=== PATIENT | male | born 1980 | race Caucasian/White ===

== ENCOUNTER 2019-02-07 23:31 | Inpatient (IN) | payer SELFPAY ==
[~2019-02-07] VITALS: Ht 188 cm; Wt 134.3 kg
--- NOTE | ~2019-02-07 | HEMODYNAMI ---
PATIENT:FRANKY HERNANDEZ MEDICAL RECORD: [id number] : 76 LOCATION:[facility] D.1212 ADMISSION DATE: 02/08/19 Generatedon:02/08/201918:17 Patient name: FRANKY HERNANDEZ Patient #: [id number] SSN: : 1980 Date of study: 02/08/2019 Page: Of Hemodynamic Procedure Report Patient Data Patient Demographics Procedure consent was obtained First Name: FRANKY Gender: Male Last Name: DAVID : 1980 Patient #: [id number] Age: 38 year(s) Race: Unknown Additional ID: [id number] Contact details Address: [address] [place] [address] State: [place] City: [facility] Zip code: [address] Admission Admission Data Admission Date: 02/08/2019 Admission Time: 3:17 Room #: D.1212 Procedure Procedure Types Cath Procedure Diagnostic Procedure LHC LHC w/Coronaries Procedure Description Procedure Date Procedure Date: 02/08/2019 Procedure Start Time: 18:07 Procedure End Time: 18:13 Procedure Staff Name Function Michael Lyon RT Scrub Mimi Blum RT Monitor Chemo Weston RN Nurse Hussain Shaw MD Performing Physician Procedure Data Cath Procedure Fluoroscopy Diagnostic fluoroscopy Total fluoroscopy Time: 1.5 time: 1.5 min min Diagnostic fluoroscopy Total fluoroscopy dose: 713 dose: 713 mGy mGy Contrast Material Contrast Material Type Amount (ml) Isovue 300 71 Entry Location Entry Primary Successful Side Size Upsize Upsize Entry Closure Briceño ccessful Closure Location (Fr) 1 (Fr) 2 (Fr) Remarks Device Remarks Radial Right 6 Fr Mechanical artery Short Compression Estimated blood loss: 5 ml Diagnostic catheters Device Type Used For End Catheter Placement DIAGNOSTIC [place] 110cm 5 Multi-vessel Fr catheter ([id number]) Angiography Procedure Complications No complications Procedure Medications Medication Administration Route Dosage Oxygen etCO2 Nasal cannula 2 l/min Heparin Flush Bag added to field 2 bags (1000units/500ml NS) 0.9% NaCl I.V. 100 ml/hr Lidocaine 2% added to field 20 Radial Cocktail added to field 1 syringe (Verapomil 2mg/Nitro 400mcg/Heparin 1500units) Fentanyl I.V. 50 mcg Versed I.V. 1 mg Fentanyl I.V. 50 mcg Versed I.V. 1 mg Radial Cocktail I.A. 1 syringe (Verapomil 2mg/Nitro 400mcg/Heparin 1500units) Hemodynamics Rest Heart Rate: 101 (bpm) Pressure Samples Time Site Value (mmHg) Purpose Heart Use Rate(bpm) 18:09 LV 138/18,33 Snapshot 100 Snapshots Pre Cath Intra NCS Post Cath Vital Signs Time Heart Resp SPO2 etCO2 NIBP (mmHg) Rhythm Pain Sedation Rate (ipm) (%) (mmHg) Status Level (bpm) 18:04:27 99 20 95 0 168/113(141) NSR 0 (11) 10(A) , No pain 18:08:53 113 24 94 30.9 159/105(126) NSR 0 (11) 10(A) , No pain 18:13:23 98 30 95 33.2 155/112(137) NSR 0 (11) 9(A) , No pain 18:15:02 97 15 34.7 160/102(131) NSR 0 (11) 9(A) , No pain Medications Time Medication Route Dose Verified Delivered Reason Notes Effectiveness by by 18:05:58 Oxygen etCO2 2 l/min Hussain Mclain Per Nasal Colin Wetson RN physician cannula 18:06:06 Heparin Flush added 2 bags Hussain Mclain used for Bag to Colin Weston RN procedure (1000units/500ml field NS) 18:06:14 0.9% NaCl I.V. 100 Hussain Mclain Per ml/hr Colin Weston RN physician 18:06:37 Lidocaine 2% added 20ml Hussain Mclain for local to vial Colin Weston RN anesthetic field 18:06:44 Radial Cocktail added 1 Hussain Mclain used for (Verapomil to syringe Colin Weston RN procedure 2mg/Nitro field 400mcg/Hepari 18:06:50 Fentanyl I.V. 50 mcg Hussain Mclain for sedation Colin Weston RN 18:06:57 Versed I.V. 1 mg Hussain Mclain for sedation Tauth MD Weston RN 18:09:48 Fentanyl I.V. 50 mcg Hussain Mclain for sedation Colin Weston RN 18:09:52 Versed I.V. 1 mg Hussain Mclain for sedation Colin Weston RN 18:10:02 Radial Cocktail I.A. 1 Hussain Nixon for (Verapomil syringe Colin Shaw MD vasodilation 2mg/Nitro 400mcg/Hepari Procedure Log Time Note 17:41:41 Diagnostic Cath Status : Elective 17:41:57 Chemo Weston RN sent for patient. Start room use. 17:41:58 Time tracking: Regular hours (M-F 7:00 - 5:00) 17:42:04 Plan of Care:Hemodynamics will remain stable., Cardiac rhythm will remain stable., Comfort level will be maintained., Respiratory function will remain adequate., Patient/ family verbilizes understanding of procedure., Procedure tolerated without complication., Recovers from procedure without complications.. 17:54:02 Patient received from Med II to CCL 1 Alert and oriented. Tansferred to table in Supine position. 17:54:03 Warm blankets applied, and prabha hugger turned on for patient comfort. 17:54:04 Correct patient and procedure confirmed by team. 17:54:05 Signed procedure consent form obtained from patient. 17:54:06 ECG and BP/O2 sat monitors applied to patient. 18:03:04 Vital chart was started 18:03:04 Baseline sample Acquired. 18:03:11 Rhythm: sinus rhythm 18:03:12 Full Disclosure recording started 18:03:16 H&P Date Dictated: 02/08/2019 New H&P dictated by physician.. 18:03:17 Pre-procedure instructions explained to patient. 18:03:18 Pre-op teaching completed and patient verbalized understanding. 18:03:19 Family in waiting room. 18:03:20 Patient NPO since Midnight. 18:03:21 Is the patient allergic to Iodine/contrast media? No. 18:03:22 Was the patient premedicated? No 18:03:24 Is patient on blood thinner?No 18:03:26 Patient diabetic? No. 18:03:29 Previous problem with sedation/anesthesia? No ? 18:03:31 Snore? Yes 18:03:32 Sleep apnea? No 18:03:33 Opens mouth fully? Yes 18:03:33 Deviated septum? No 18:03:34 Sticks out tongue? Yes 18:03:35 Airway obstruction? No ? 18:03:39 Dentures? No ? 18:03:42 Pre procedure: right dorsailis pedis pulse 2+ Normal; easily identifiable; not easily obliterated 18:03:47 Pre procedure: left dorsailis pedis pulse 2+ Normal; easily identifiable; not easily obliterated 18:03:50 Patient pain scale 0/10 ?. 18:03:58 IV patent on arrival in right forearm with 0.9% NaCl at [facility]. 18:04:00 Lab results completed and on chart. 18:04:03 Right Radial & Right Groin area was prepped with chlora-prep and draped in sterile fashion 18:04:05 Alarms reviewed by R. N. 18:04:06 Sharps counted by scrub and verified by R.N. 18:04:07 --------ALL STOP TIME OUT------ 18:04:07 Physician arrived 18:04:08 Final Timeout: patient, procedure, and site verified with staff and physician. All members of the team are in agreement. 18:04:09 Right Radial & Right Groin site verified by team. 18:04:45 Maximum allowable Isovue 300 dose 300ml. Physician notified. (300ml for normal creatinines. For patients with creatinine of 1.7 or higher multiply weight(kg) x 5 divided by creatinine.) 18:04:49 Fire Safety Assessment: A--An alcohol-based skin anteseptic being used preoperatively., C--Open oxygen or nitrous oxide is being used., D--An ESU, laser, or fiber-optic light is being used. 18:04:57 Physical assessment completed. ASA score P 2 - A patient with mild systemic disease as per Hussain Shaw MD. 18:05:01 Sedation plan: IV Moderate Sedation Medication:Versed, Fentanyl 18:05:58 Oxygen 2 l/min etCO2 Nasal cannula was administered by Chemo Weston RN; Per physician; 18:06:06 Heparin Flush Bag (1000units/500ml NS) 2 bags added to field was administered by Chemo Weston RN; used for procedure; 18:06:14 0.9% NaCl 100 ml/hr I.V. was administered by Chemo Weston RN; Per physician; 18:06:37 Lidocaine 2% 20ml vial added to field was administered by Chemo Weston RN; for local anesthetic; 18:06:44 Radial Cocktail (Verapomil 2mg/Nitro 400mcg/Heparin 1500units) 1 syringe added to field was administered by Chemo Weston RN; used for procedure; 18:06:50 Fentanyl 50 mcg I.V. was administered by Chemo Weston RN; for sedation; 18:06:52 Zero performed for pressure channel P1 18:06:57 Versed 1 mg I.V. was administered by Chemo Weston RN; for sedation; 18:07:05 Use device set Radial Dx or PCI 18:07:06 Medline Cath Pack ([id number]) opened to sterile field. 18:07:06 ACIST Syringe (07339) opened to sterile field. 18:07:07 DIAGNOSTIC WIRE .035 260cm J wire (451825) opened to sterile field. 18:07:07 Bag Decanter (2002S) opened to sterile field. 18:07:08 ACIST Manifold (45569) opened to sterile field. 18:07:08 ACIST Hand Control (77453) opened to sterile field. 18:07:09 Tegaderm 4 x 4 (1626W) opened to sterile field. 18:07:10 MBrace Wrist Support (001856697) opened to sterile field. 18:07:11 SHEATH 6FR Slender (16-9496) opened to sterile field. 18:07:15 Procedure started. 18:07:19 Local anesthetic to right radial artery with Lidocaine 2% by Hussain Shaw MD.INITIAL ACCESS ONLY 18:07:28 A 6 Fr Short sheath was inserted into the Right Radial artery 18:08:13 A DIAGNOSTIC [place] 110cm 5 Fr catheter ([id number]) was advanced over the wire and used for Multi-vessel Angiography. 18:09:27 LV hemodynamics recorded. 18::28 LV gram done using PHILLIP 18:09:30 Injector settings: Ml/sec: 5, Volume: 15, 18:09:42 EF : 20 % 18:09:48 Fentanyl 50 mcg I.V. was administered by Chemo Weston RN; for sedation; 18::49 LCA angiography performed. 18:09:52 Versed 1 mg I.V. was administered by Chemo Weston RN; for sedation; 18:10:02 Radial Cocktail (Verapomil 2mg/Nitro 400mcg/Heparin 1500units) 1 syringe I.A. was administered by Hussain Shaw MD; for vasodilation; 18:10:32 Injector settings: Ml/sec: 3, Volume: 6, 18:11:44 RCA angiography performed. 18:11:49 Catheter removed. 18:11:54 TR BAND Large ([id number]) opened to sterile field. 18:12:04 Sheath removed intact; hemostasis achieved with Mechanical Compression to the Right Radial artery. 18:12:09 Procedure ended.(Physican Out) 18:12:19 Fluoroscopy time 01.50 minutes. 18:12:23 Fluoroscopy dose: 713 mGy 18:12:23 Flurop Dose total: 713 18:12:27 Contrast amount:Isovue 300 71ml. 18:12:28 Sharps counted by scrub and verified by R.N. 18:12:30 TR band inflated with 14cc of air. 18:12:32 Insertion/operative site no bleeding no hematoma. 18:12:36 Post right radial artery:stable 18:12:38 Post Procedure Pulses reassessed and unchanged 18:12:41 Post procedure rhythm: unchanged. 18:12:44 Estimated blood loss: 5 ml 18:12:46 Post procedure instruction explained to patient.Patient verbalizes understanding. 18:12:47 Patient needs reinforcement of post procedure teaching. 18:12:58 Procedure type changed to Cath procedure, Diagnostic procedure, LHC, LHC w/Coronaries 18:12:59 Procedure and supply charges have been captured, reviewed, submitted and are correct. 18:13:06 Procedure Complication : No complications 18:13:12 Vital chart was stopped 18:13:14 See physician's report for complete and final results. 18:13:18 Report given to [facility]. 18:13:20 Patient transfered to [facility] with Stretcher. 18:13:21 Full Disclosure recording stopped 18:13:21 Procedure ended. 18:13:24 End room use (Document Last) Device Usage Item Name Manufacture Quantity Catalog Hospital Part Current Minimal Lot# / Number Charge Number Stock Stock Serial# Code [facility] 1 53220 986717 110042 152780 20 Syringe Medical (65144) Systems Inc Medline Medline 1 [id number] 742541 27704 791329 5 Cath Pack ([id number]) Bag Microtek 1 2001S 135547 10734 159896 5 Decanter Medical Inc. () DIAGNOSTIC [facility] [place] 1 275593 322438 314477 574046 30 WIRE .035 260cm J wire (047166) ACIST Hand Acist 1 55133 972076 291524 781867 5 Control Medical (61793) Systems Inc ACIST Acist 1 96540 992616 311523 148399 5 Manifold Medical (71349) Systems Inc Tegaderm 4 3M 1 1626W 351831 900665 531974 5 x 4 (1626W) MBrace Advanced 1 140-0250-00 436569 29021 662707 5 Wrist Vascular Support Dynamics ([id number]) SHEATH 6FR Terumo 1 [id number] 144518 959061 590952 5 Slender (80-1060) DIAGNOSTIC Terumo 1 40-3337 930457 295767 116607 5 [place] 110cm 5 Fr catheter (063958) TR BAND Terumo 1 [id number] 219001 359622 250370 40 Large ([id number]) Signature Audit [place] Stage Time Signature Unsigned Intra-Procedure 02/08/2019 Mimi Blum RT(R) 6:15:39 PM RT(R) 02/08/2019 6:16:49 PM Intra-Procedure 02/08/2019 Mimi Blum 6:17:13 PM RT(R) Signatures Monitor : Mimi Blum RT Signature : Date : Time : [facility] [address] [place] [address]
[2019-02-08] VITALS (11 sets, daily range): BP systolic 137–163; BP diastolic 86–113; Ht 188 cm; Wt 134.3 kg
[2019-02-08 00:01] LABS: HEMATOCRIT 46.1 % (42.0-54.0); HEMOGLOBIN 15.7 g/dL (13.5-17.5); LYMPHOCYTES 38.4 % (15-50); MCH 30.9 pg (26.0-34.0); MCHC 34.1 g/dL (31.0-37.0); MCV 90.7 fL (80.0-100.0); MEAN PLATELET VOLUME 10.5 fL (7.4-10.4); PLATELET COUNT 210 10x3/uL (130-400); RBC 5.08 10x6/uL (4.20-6.10); RDW 14.1 % (11.5-14.5); WBC 6.5 10x3/uL (4.8-10.8)
[2019-02-08 00:06] LABS: APTT 30.1 SECONDS (22.8-39.4); INR 1.18 (0.85-1.17); PROTIME 14.5 SECONDS (11.6-15.0)
[2019-02-08 00:07] LABS: ALBUMIN 3.2 g/dL (3.4-5.0); ALKALINE PHOSPHATASE 68 U/L (46-116); ALT (SGPT) 45 U/L (10-68); BILIRUBIN - TOTAL 1.92 mg/dL (0.2-1.3); CALC OSMOLALITY 283 mosm/kg (275-300); CALCIUM 8.2 mg/dL (8.5-10.1); CARBON DIOXIDE 26.4 mmol/L (21.0-32.0); CHLORIDE - SERUM 105 mmol/L (98-107); CREATININE - SERUM 1.2 mg/dL (0.6-1.3); GLUCOSE 106 mg/dL (74-106); POTASSIUM - SERUM 4.4 mmol/L (3.5-5.1); PROTEIN - SERUM 7.3 g/dL (6.4-8.2); SODIUM 142 mmol/L (136-145); UREA NITROGEN 16 mg/dL (7-18); eGFR NON AFRICAN AMERICAN 71 mL/min (90-120)
[2019-02-08 00:22] LABS: CKMB 2.9 U/L (0.0-3.6); CREATINE KINASE 193 UL (21-232); PRO BNP 2119 pg/mL (0-125)
[2019-02-08 00:26] LABS: TROPONIN-I 0.066 ng/mL (0.000-0.060)
--- NOTE | 2019-02-08 06:36 | NUR ---
RECIEVED REPORT FROM [facility]. PT ARRIVED ON A WHEELCHAIR ACCOMPANIED BY . ADMISSION VSS, WITH SBP 169. RR EVEN AND UNLABORED. NO S/S OF DISTRESS. PROVIDER ORDERED NPO. BUT PT STATES HE HAD SPRITE IN THE ER PRIOR TO ADMISSION IN TO THE FLOOR. PT DENIES ANY NEED FOR PAIN. PT CORRENTLY ON 02 4L. WILL CPOC. CL IN REACH, BED IN LOW, SR UP X2.
--- NOTE | 2019-02-08 08:00 | NUR ---
PT RESTING IN BED WITH FAMILY AT BEDSIDE. SHIFT ASSESSMENT PERFORMED. CARDIAC RESEARCH QUALITY ASSURANCE ANALYST CONSENTS SIGNED. PT DENIES ANY QUESTIONS ABOUT PROCEDURE. DENIES PAIN AT THIS TIME, DENIES ANY OTHER NEEDS AT THIS TIME. WILL CONT TO FOLLOW PLAN OF CARE
[2019-02-08 08:19] LABS: CKMB 2.1 U/L (0.0-3.6); CREATINE KINASE 158 UL (21-232); TROPONIN-I 0.057 ng/mL (0.000-0.060)
--- NOTE | 2019-02-08 08:52 | NUR ---
OVER READ FROM RADIOLOGY RECEIVED, PT HAS 3.4 CM ASCENDING AORTIC ANEURYSM. [facility] ON MED 3 NOTIFIED ET WILL FOLLOW UP WITH INPATIENT PHYSICIAN.
[2019-02-08 11:45] LABS: UDS - AMPHET POSITIVE QUAL (NEGATIVE); UDS - BARB NEGATIVE QUAL (NEGATIVE); UDS - BENZO NEGATIVE QUAL (NEGATIVE); UDS - COCAINE NEGATIVE QUAL (NEGATIVE); UDS - OPIATE POSITIVE QUAL (NEGATIVE); UDS - PCP NEGATIVE QUAL (NEGATIVE); UDS - THC NEGATIVE QUAL (NEGATIVE)
[2019-02-08 12:37] LABS: APPEARANCE CLEAR (CLEAR); COLOR DK YELLOW (YELLOW)
[2019-02-08 12:38] LABS: BACTERIA MODERATE /hpf (NONE SEEN); BILIRUBIN NEGATIVE (NEGATIVE); EPITHELIAL CELLS 0-5 /hpf (0-5); GLUCOSE NEGATIVE (NEGATIVE); KETONE NEGATIVE (NEGATIVE); MUCUS >1+ /lpf (NONE SEEN); NITRITE NEGATIVE (NEGATIVE); PROTEIN 3+ mg/dL (NEGATIVE); RED CELLS - URINE 0-5 /hpf (0-5); WHITE CELLS - URINE 0-5 /hpf (0-5)
[2019-02-08 12:39] LABS: HYALINE CAST OCC /lpf (NONE SEEN)
[2019-02-08 13:08] LABS: CKMB 2.8 U/L (0.0-3.6); CREATINE KINASE 154 UL (21-232); TROPONIN-I 0.043 ng/mL (0.000-0.060)
--- NOTE | 2019-02-08 16:48 | NUR ---
WEB UI SOFTWARE ENGINEER CALLED TO PREOP PT. PT PREOPED PER ORDERS.
--- NOTE | 2019-02-08 17:55 | NUR ---
CORE JAVA ENGINEER STAFF HERE TO TAKE PT TO CARDIAC CATH
--- NOTE | 2019-02-08 18:31 | NUR ---
PT RETURNED BACK FROM HEART CATH. VS STABLE AND WNL. RIGHT WRIST TR BAND IN PLACE. NO BLEEDING OR HEMATOMA NOTED AT THIS TIME.
--- NOTE | 2019-02-08 20:56 | NUR ---
FAMILY AT BED SIDE, CALL LIGHT IN REACH.
[2019-02-09 02:05] VITALS: BP 126/74
--- NOTE | 2019-02-09 02:26 | NUR ---
REST QUIETLY IN BED, RESP EVEN, NO DISTRESS. CALL LIGHT IN REACH.
--- NOTE | 2019-02-09 04:45 | NUR ---
I have reviewed this patient and I concur with the Shift Assessment completed by the Licensed Practical Nurse today this shift.
--- NOTE | 2019-02-09 07:30 | NUR ---
PT RESTING IN BED, EYES CLOSED. RESPIRATIONS EVEN AND UNLABORED. NO C/O PAIN. NO S/S OF ACUTE DISTRESS NOTED. PT ALERT AND ORIENTED. AT BEDSIDE. UP AD AKBAR. PT ON 2L O2, NC. IV TO RIGHT AC, SL. SITE PATENT WITHOUT REDNESS OR SWELLING. PT DENIES ANYTHING FURTHER AT THIS TIME. CALL LIGHT IN REACH. WILL CONTINUE TO MONITOR.
[2019-02-09 07:57] LABS: BASOPHILS 0 % (0-2); EOSINOPHILS 3.2 % (0-7); HEMATOCRIT 44.8 % (42.0-54.0); HEMOGLOBIN 14.9 g/dL (13.5-17.5); IMMATURE GRANULOCYTES 0.3 % (0-5); LYMPHOCYTES 29.3 % (15-50); MCH 30.5 pg (26.0-34.0); MCHC 33.3 g/dL (31.0-37.0); MCV 91.6 fL (80.0-100.0); MEAN PLATELET VOLUME 10.9 fL (7.4-10.4); MONOCYTES 7.8 % (2-11); NEUTROPHILS 59.4 % (40-80); PLATELET COUNT 209 10x3/uL (130-400); RBC 4.89 10x6/uL (4.20-6.10); RDW 14.3 % (11.5-14.5); WBC 6.6 10x3/uL (4.8-10.8)
[2019-02-09 08:08] VITALS: BP 133/78
[2019-02-09 08:12] LABS: CALC OSMOLALITY 282 mosm/kg (275-300); CALCIUM 8.3 mg/dL (8.5-10.1); CARBON DIOXIDE 30.3 mmol/L (21.0-32.0); CHLORIDE - SERUM 103 mmol/L (98-107); CREATININE - SERUM 1.1 mg/dL (0.6-1.3); GLUCOSE 122 mg/dL (74-106); POTASSIUM - SERUM 4.2 mmol/L (3.5-5.1); SODIUM 141 mmol/L (136-145); UREA NITROGEN 15 mg/dL (7-18); eGFR NON AFRICAN AMERICAN 79 mL/min (90-120)
[2019-02-09 16:13] VITALS: BP 154/103
--- NOTE | 2019-02-09 18:49 | NUR ---
PT RESTING IN BED, EYES CLOSED. RESPIRATIONS EVEN AND UNLABORED. AROUSES TO VOICE. AT BEDSIDE. NO C/O PAIN. NO S/S OF ACUTE DISTRESS NOTED. CALL LIGHT IN REACH. PT DENIES ANYTHING FURTHER AT THIS TIME. WILL CONTINUE TO MONITOR.
--- NOTE | 2019-02-09 19:56 | NUR ---
PATIENT RESTING IN BED WITH EYES OPEN. SOCIALIZING WITH . NO SIGNS OF DISTRESS. DENIES HAVING ANY PAIN OR NEEDS AT THIS TIME. BED IN LOWEST POSITION. SIDE RAILS UP. CALL LIGHT IN REACH. CONTINUE PLAN OF CARE.
[2019-02-09 20:00] VITALS: BP 145/92
[2019-02-10] VITALS (7 sets, daily range): BP systolic 134–166; BP diastolic 64–112
--- NOTE | 2019-02-10 04:00 | NUR ---
PATIENT RESTING IN BED WITH EYES CLOSED. NO SIGNS OF DISTRESS. BED IN LOWEST POSITION. SIDE RAILS UP. CALL LIGHT IN REACH. CONTINUE PLAN OF CARE.
--- NOTE | 2019-02-10 07:20 | NUR ---
PT RESTING IN BED, EYES CLOSED. RESPIRATIONS EVEN AND UNLABORED. AROUSES TO VOICE. AT BEDSIDE. NO C/O PAIN. NO S/S OF ACUTE DISTRESS NOTED. PT ALERT AND ORIENTED. UP AD AKBAR. ON ELECTROLYTE PROTOCOL. IV TO RIGHT AC, SL. SITE PATENT WITHOUT REDNESS OR SWELLING. PT DENIES ANYTHING FURTHER AT THIS TIME. CALL LIGHT IN REACH. WILL CONTINUE TO MONITOR.
--- NOTE | 2019-02-10 10:30 | MORECARE ---
CASE MANAGEMENT DISCHARGE SUMMARY PATIENT: FRANKY HERNANDEZ UNIT: [id number] ADM DATE: 02/08/19 AGE: 38 : [birth year] SEX: M ROOM/BED: D.1212 AUTHOR: CAMRON CROFT PHYSICIAN: REFERRING PHYSICIAN: IVIS WARD MD DATE OF SERVICE: 02/10/19 Discharge Plan Patient Name: FRANKY HERNANDEZ Facility: [facility]:[place] : 1980 Planned Disposition: Home Anticipated Discharge Date: Discharge Date: Expected LOS: Initial Reviewer: [email or web address] Initial Review Date: 02/08/2019 Generated: 02/10/19 11:29 am Comments DCP- Discharge Planning Updated by [email or web address]: Alba Ozuna on 02/10/19 9:[address] Patient Name: FRANKY HERNANDEZ Admission Status: ER Accout number: [id number] Admission Date: 02-08-2019 : 1980 Admission Diagnosis: Attending: IVIS WARD Current LOS: 2 Anticipated DC Date: Planned Disposition: Home Primary Insurance: UNINSURED DISCOUNT PLAN Discharge Planning Comments: CM MET WITH PATIENT ABOUT DC PLANNING/NEEDS. STATES NO NEEDS. WILL DC TO HOME WITH , HOPES TO DC TODAY. CM WILL FOLLOW AND ASSIST WITH DC PLANNING/NEEDS. Executive Chairman: Alba Ozuna DCPIA - Discharge Planning Initial Assessment Updated by [email or web address]: Alba Ozuna on 02/10/19 10:23 am * Is the patient Alert and Oriented? Yes * PCP NONE * Preadmission Environment Home with Family * ADLs Independent * Equipment None * List name and contact numbers for known caregivers / representatives who currently or will assist patient after discharge: MEÑO ROGERS, * Community resources currently utilized None * Additional services required to return to the preadmission environment? No * Can the patient safely return to the preadmission environment? Yes * Has this patient been hospitalized within the prior 30 days at any hospital? No Patient Name: FRANKY HERNANDEZ Page 18139 at 1030 All edits/amendments must be made on the electronic document DICTATION DATE: 02/10/19 1029 RUBBER FACTORY WORKER: PJ 02/10/19 1029 RPT#: [id number] DC DATE: STATUS: ADM IN [facility] [address] [place] [address] END OF REPORT
--- NOTE | 2019-02-10 18:08 | NUR ---
PT SITTING UP IN CHAIR. AT BEDSIDE. NO C/O PAIN. NO S/S OF ACUTE DISTRESS NOTED. PT DENIES ANYTHING FURTHER AT THIS TIME. CALL LIGHT WITHIN REACH. WILL CONTINUE TO MONITOR.
--- NOTE | 2019-02-10 19:40 | NUR ---
LYING IN BED. TALKATIVE WITH STAFF AND JOKING. AT BEDSIDE. RESP EVEN AND NONLABORED. DENIES SOB. NO O2 IN USE. BBS CTA. 2+ EDEMA NOTED TO BLE. ABD OBESE, NONTENDER. AMBULATORY. SALINE LOCK NOTED TO RT AC. DENIES PAIN. ALERT AND ORIENTED X4. NO DISTRESS. CL IN REACH.
--- NOTE | 2019-02-11 00:34 | NUR ---
LYING IN BED WITH EYES CLOSED. RESP EVEN AND NONLABORED. NO DISTRESS. CL IN REACH. AT BEDSIDE.
[2019-02-11 03:58] VITALS: BP 125/79
--- NOTE | 2019-02-11 05:58 | NUR ---
SALINE LOCK CAME OUT. PT THINKS HE IS GOING HOME TODAY AND DOESNT WANT IV RESTARTED.
[2019-02-11 06:12] LABS: BASOPHILS 0.1 % (0-2); EOSINOPHILS 5.4 % (0-7); HEMATOCRIT 50.6 % (42.0-54.0); IMMATURE GRANULOCYTES 0.4 % (0-5); LYMPHOCYTES 23.6 % (15-50); MCH 30.6 pg (26.0-34.0); MCHC 33.6 g/dL (31.0-37.0); MEAN PLATELET VOLUME 11.1 fL (7.4-10.4); MONOCYTES 8.4 % (2-11); NEUTROPHILS 62.1 % (40-80); PLATELET COUNT 234 10x3/uL (130-400); RBC 5.56 10x6/uL (4.20-6.10); RDW 14.1 % (11.5-14.5)
[2019-02-11 06:14] LABS: CALC OSMOLALITY 282 mosm/kg (275-300); CALCIUM 8.8 mg/dL (8.5-10.1); CARBON DIOXIDE 29.8 mmol/L (21.0-32.0); CHLORIDE - SERUM 103 mmol/L (98-107); CREATININE - SERUM 1.1 mg/dL (0.6-1.3); GLUCOSE 125 mg/dL (74-106); POTASSIUM - SERUM 3.6 mmol/L (3.5-5.1); SODIUM 141 mmol/L (136-145); UREA NITROGEN 14 mg/dL (7-18); eGFR NON AFRICAN AMERICAN 79 mL/min (90-120)
[2019-02-11] MEDS ORDERED: COREG12.5 MG PO (06:39)
[2019-02-11] MEDS ORDERED: LISINOPRIL10 MG PO (06:39)
[2019-02-11] MEDS ORDERED: LASIX40 MG PO (06:39)
[2019-02-11] MEDS ORDERED: PROTONIX40 MG PO (06:40)
[2019-02-11] MEDS ORDERED: POTASSIUM CHLO20 MEQ PO (06:40)
--- NOTE | 2019-02-11 07:40 | NUR ---
ASSESSMENT COMPLETE. NO IV ACCESS. UP AD AKBAR IN ROOM. FAMILY AT BEDSIDE.
[2019-02-11] MEDS ORDERED: VISTARIL50 MG PO (08:39)
--- NOTE | 2019-02-11 08:50 | NUR ---
DISCHARGE TEACHING GIVEN TO PATIENT AND FAMILY. VOICED UNDERSTANDING.
--- NOTE | 2019-02-11 09:00 | NUR ---
DC'D HOME WITH FAMILY WITH BELONGINGS.
[2019-02-11 10:36] VITALS: BP 137/98
--- NOTE | 2019-02-11 17:08 | MORECARE ---
CASE MANAGEMENT DISCHARGE SUMMARY PATIENT: FRANKY HERNANDEZ UNIT: [id number] ADM DATE: 02/08/19 AGE: 38 : [birth year] SEX: M ROOM/BED: D.1212 AUTHOR: CAMRON CROFT PHYSICIAN: REFERRING PHYSICIAN: IVIS WARD MD DATE OF SERVICE: 02/11/19 Discharge Plan Patient Name: FRANKY HERNANDEZ Facility: [facility]:[place] : 1980 Planned Disposition: Home Anticipated Discharge Date: 02/11/19 Discharge Date: 02/11/2019 Expected LOS: 3 Initial Reviewer: [email or web address] Initial Review Date: 02/08/2019 Generated: 02/11/19 6:08 pm Comments DCP- Discharge Planning Updated by [email or web address]: Alba Ozuna on 02/11/19 4:[address] Patient Name: FRANKY HERNANDEZ Encounter No: [id number] : 1980 Primary Insurance: UNINSURED DISCOUNT PLAN Anticipated DC Date: 02-11-2019 Planned Disposition: Home External Planned Provider: : DCP follow-up note: Patient and family in agreement with discharge plan. No changes to plan. Case management will follow and assist as needed. Alba Ozuna DCP- Discharge Planning Updated by [email or web address]: Alba Ozuna on 02/10/19 9:[address] Patient Name: FRANKY HERNANDEZ Admission Status: ER Accout number: [id number] Admission Date: 02-08-2019 : 1980 Admission Diagnosis: Attending: IVIS WARD Current LOS: 2 Anticipated DC Date: Planned Disposition: Home Primary Insurance: UNINSURED DISCOUNT PLAN Discharge Planning Comments: CM MET WITH PATIENT ABOUT DC PLANNING/NEEDS. STATES NO NEEDS. WILL DC TO HOME WITH , HOPES TO DC TODAY. CM WILL FOLLOW AND ASSIST WITH DC PLANNING/NEEDS. Wardrobe Assistant: Alba Ozuna DCPIA - Discharge Planning Initial Assessment Updated by [id number]: Alba Ozuna on 02/10/19 10:23 am * Is the patient Alert and Oriented? Yes * PCP NONE * Preadmission Environment Home with Family * ADLs Independent * Equipment None * List name and contact numbers for known caregivers / representatives who currently or will assist patient after discharge: MEÑO ROGERS, * Community resources currently utilized None * Additional services required to return to the preadmission environment? No * Can the patient safely return to the preadmission environment? Yes * Has this patient been hospitalized within the prior 30 days at any hospital? No Last DP export: 02/10/19 9:29 a Patient Name: FRANKY HERNANDEZ Page 45443 at 1708 All edits/amendments must be made on the electronic document DICTATION DATE: 02/11/191707 INSPECTOR POISING: PJ 02/11/191707 RPT#: [id number] DC DATE:02/11/19 STATUS: DIS IN [facility] [address] [place] [address] END OF REPORT
--- NOTE | 2019-02-12 14:57 | EC ---
PATIENT:FRANKY HERNANDEZ DATE OF SERVICE: 02/08/19 SEX: M MEDICAL RECORD: [id number] DATE OF : [birth year] LOCATION:D.M3 D.121 AGE OF PATIENT: 38 ADMISSION DATE: 02/08/19 REFERRING PHYSICIAN: INTERPRETING PHYSICIAN: LUIZA SHAW MD ECHOCARDIOGRAM REPORT ECHO CHARGES 4 ECHO COMPLETE Date: 02/08/19 CLINICAL DIAGNOSIS: CP ECHOCARDIOGRAPHIC MEASUREMENTS (adult normal given) AC root (d.<3.7cm) 3.7 cm LV Septum d (<1.2 cm> 1.6 cm Valve Excursion 1.7 cm LV Septum (systole) 1.7 cm Left Atria (s.<4.0cm> 5.0 cm LVPW d(<1.2cm) 1.3 cm RV (d.<2.3cm) 3.2 cm LVPW (sytole) 1.7 cm LV diastole(<5.6CM) 7.2 cm MV E-F(>70mm/sec) cm LV systole 6.0 cm LVOT Diameter 2.6 cm MV exc.(>10mm) cm Est.ejection fraction (50-75%) % DOPPLER: LVIT cm/sec A 30 cm/sec E 88 cm/sec LA cm/sec RVSP 20.0 mmHg LVOT 80 cm/sec AOP1/2T m/s Asc. Ao 94 cm/sec RVOT 51 cm/sec RA cm/sec PA 69 cm/sec AV Gradient Peak 3.5 mmHg AV Mean 2.3 mmHg AV Area 4.2 cm MV Gradient Peak 4.3 mmHg MV Mean 1.6 mmHg MV Area cm COMMENTS: Estate Planning Paralegal: Kayode KAPLAN Cattle Examiner: Wolfgang Shaw TAPE# PACS Pericardial Effusion N DATE OF SERVICE: 02/08/2019 FINDINGS: 1. Left ventricular chamber size is markedly dilated. Left ventricular systolic function is markedly reduced. Overall ejection fraction is 20%. 2. Left atrium is enlarged. Right atrium and right ventricular chamber sizes are as well dilated, giving 4-chamber dilatation. 3. Valvular structures have normal structure and motion. 4. Doppler interrogation reveals mild mitral regurgitation and mild tricuspid regurgitation. No other valvular insufficiency or stenosis. Pulmonary systolic ECHOCARDIOGRAM REPORT [id number] FRANKY HERNANDEZ pressure is normal at 20 mmHg. 5. No evidence of pericardial effusion or left ventricular thrombus. TRANSINT:[id number] Voice Confirmation ID: [id number] DOCUMENT ID: [id number] LUIZA SHAW MD at 1457 CC: [id number] DICTATION DATE: 02/08/19 1634 SPECIMEN TECHNICIAN: 02/08/19 190 DIS IN 02/11/19 [facility] [address] [place] [id number]
--- NOTE | 2019-02-12 14:57 | OP ---
PATIENT NAME: FRANKY HERNANDEZ MEDICAL RECORD: [id number] :76 LOCATION:D.M3 D.1212 ADMISSION DATE:02/08/19 SURGEON: LUIZA RUBALCAVA MD DATE OF OPERATION: 02/08/2019 PROCEDURES: 1. Left heart catheterization. 2. Selective coronary angiography. 3. Left ventriculogram. INDICATION: Shortness of breath, angina, increased troponin, cardiomyopathy. PROCEDURE IN DETAIL: After informed consent was obtained and after a detailed description of the risks, benefits as well as alternative therapies, the patient elected to proceed with angiogram and heart catheterization. The right radial area was prepped and draped in normal sterile fashion. Right radial artery was cannulated via modified Seldinger technique with placement of 5-[place] sheath. All catheters exchanged through this sheath. FINDINGS: Left ventriculogram was performed in standard 30 degree PHILLIP view reveals LV dilatation, global hypokinesis, ejection fraction in the 20% range. SELECTIVE CORONARY ANGIOGRAPHY: Left main, left anterior descending, left circumflex, right coronary artery are all smooth-walled vessels with no angiographic evidence of coronary artery disease. OVERALL IMPRESSION: 1. No angiographic evidence of coronary artery disease. 2. Normal left heart pressures. 3. Normal left ventricular systolic function. Chest pain is secondary to the cardiomyopathy and demand ischemia. This is a nonischemic cardiomyopathy. Center medical management and treatment of the cardiomyopathy. TRANSINT:[id number] Voice Confirmation ID: [id number] DOCUMENT ID: [id number] LUIZA RUBALCAVA MD at 1457 CC: [id number] DICTATION DATE: 02/08/191816 MANAGER IMAGE: 02/09/19 0101 DIS IN 02/11/19 [place] [id number] [place] [id number]
--- NOTE | 2019-02-12 14:57 | CN ---
PATIENT NAME:FRANKY HERNANDEZ MEDICAL RECORD: [id number] : 76 LOCATION:[address] ADMIT DATE: 02/08/19 ACCOUNT: [id number] CONSULTING PHYSICIAN: LUIZA RUBALCAVA MD REFERRING PHYSICIAN: IVIS WARD MD DATE OF CONSULTATION: 02/08/2019 DIAGNOSES: 1. Unstable angina. 2. Shortness of breath, dyspnea on exertion. 3. Paroxysmal atrial fibrillation. 4. Family history of coronary artery disease. HISTORY: This is a gentleman, who presents with chest discomfort, very typical for angina and shortness of breath for the past 2-3 weeks, worsening over the past 2 days. Supposedly, he had an episode of atrial fibrillation while in the Emergency Room. His EKG is only sinus tachycardia. His troponin is mildly elevated. PHYSICAL EXAMINATION: GENERAL APPEARANCE: Well-nourished, well-developed, appears stated age. Level of distress, comfortable. PSYCHIATRIC: Mental status, alert, normal affect. Orientation, oriented to time, place and person. EYES: Lids and conjunctiva, noninjected. No discharge, no pallor. ENT: Lips, teeth, gums, normal dentition. Oropharynx, no cyanosis, no pallor. NECK: Carotid arteries, bilateral normal upstroke, no bruits, no thrills. JUGULAR VEINS: No jugular venous pressure or distention. CERVICAL LYMPH NODES: Nontender, nonenlarged. THYROID: Not enlarged. Nontender. No nodules. LUNGS: Respiratory effort, unlabored. CHEST: Normal curvature. No thoracic deformity. No chest wall tenderness. Percussion, resonant. Auscultation, clear. No wheezes, no rales, no rhonchi. CARDIOVASCULAR: Precordial exam, nondisplaced. No heaves or pericardial thrills. Rate and rhythm, regular. Heart sounds, normal S1, normal S2. No S3, no gallop, no rub. Systolic murmur, not heard. Diastolic murmur, not heard. EXTREMITIES: No cyanosis, no edema. Peripheral pulses, full and equal in all extremities, except as noted. No bruits appreciated. ABDOMEN: Soft, nondistended. Normal aorta. No bruit. Nontender. No masses. Liver, nontender, no hepatomegaly. Spleen, nontender, no splenomegaly. MUSCULOSKELETAL: No joint tenderness. No joint swelling. No erythema. NEUROLOGICAL: Normal gait, normal strength, normal tone. SKIN: Warm and dry. OVERALL IMPRESSION: Chest pain compatible with angina in an escalating fashion with elevated troponin. We will proceed with coronary angiography. Further care depends upon findings of the angiography. TRANSINT:[id number] Voice Confirmation ID: [id number] DOCUMENT ID: [id number] CONSULT REPORT [id number] FRANKY HERNANDEZ, LUIZA GRIFFITH at 1457 CC: [id number] DICTATION DATE: 02/08/19830 PHILOSOPHY PROFESSOR: 02/08/19 1140 DIS IN 02/11/19 [facility] [address] [place] [id number]
== END 2019-02-11 09:00 | disposition home or self-care (01) | DRG 286 ==
LOC: D.ER 23:31 → D.M3 02-08 03:17 → D.EDHOLD 02-08 03:17 → D.M3 02-08 03:36
PROVIDERS: Emergency Medicine; Internal Medicine Interventional Cardiology; ADMIT Internal Medicine Nephrology; ATTEND Internal Medicine Nephrology
PROC: B2151ZZ Fluoroscopy of Left Heart using Low Osmolar Contrast (ICD-10-PCS; 2019-02-08)
PROC: 4A023N7 Measurement of Cardiac Sampling and Pressure, Left Heart, Percutaneous Approach (ICD-10-PCS; 2019-02-08)
PROC: B2111ZZ Fluoroscopy of Multiple Coronary Arteries using Low Osmolar Contrast (ICD-10-PCS; principal; 2019-02-08 18:00)
DX: I11.0 Hypertensive heart disease with heart failure (principal); J96.01 Acute respiratory failure with hypoxia; I24.8 Other forms of acute ischemic heart disease; F17.213 Nicotine dependence, cigarettes, with withdrawal; I42.9 Cardiomyopathy, unspecified; I50.41 Acute combined systolic (congestive) and diastolic (congestive) heart failure; I48.0 Paroxysmal atrial fibrillation; F15.10 Other stimulant abuse, uncomplicated

== ENCOUNTER 2019-02-16 19:17 | Emergency (ER) | payer SELFPAY ==
[~2019-02-16] VITALS: Ht 188 cm; Wt 138.6 kg
[~2019-02-16 19:17] MED LIST: COREG12.5 MG PO; LASIX40 MG PO; LISINOPRIL10 MG PO; POTASSIUM CHLO20 MEQ PO; PROTONIX40 MG PO; VISTARIL50 MG PO
[2019-02-16 19:40] VITALS: Ht 188 cm; Wt 138.6 kg
[2019-02-16 20:00] LABS: BASOPHILS 0.2 % (0-2); EOSINOPHILS 3.8 % (0-7); HEMATOCRIT 54.1 % (42.0-54.0); HEMOGLOBIN 18.5 g/dL (13.5-17.5); IMMATURE GRANULOCYTES 0.3 % (0-5); MCH 31.4 pg (26.0-34.0); MCHC 34.2 g/dL (31.0-37.0); MCV 91.7 fL (80.0-100.0); MEAN PLATELET VOLUME 11.5 fL (7.4-10.4); MONOCYTES 7.9 % (2-11); NEUTROPHILS 57.8 % (40-80); RDW 14.2 % (11.5-14.5)
[2019-02-16 20:01] LABS: PLATELET COUNT 293 10x3/uL (130-400)
[2019-02-16 20:08] LABS: INR 1.24 (0.85-1.17); PROTIME 15.1 SECONDS (11.6-15.0)
[2019-02-16 20:09] LABS: APTT 81.3 SECONDS (22.8-39.4)
[2019-02-16 21:23] LABS: ALBUMIN 3.5 g/dL (3.4-5.0); ALKALINE PHOSPHATASE 65 U/L (46-116); ALT (SGPT) 39 U/L (10-68); BILIRUBIN - TOTAL 1.35 mg/dL (0.2-1.3); CALC OSMOLALITY 283 mosm/kg (275-300); CARBON DIOXIDE 27.3 mmol/L (21.0-32.0); CHLORIDE - SERUM 103 mmol/L (98-107); CREATININE - SERUM 1.1 mg/dL (0.6-1.3); GLUCOSE 129 mg/dL (74-106); POTASSIUM - SERUM 5.2 mmol/L (3.5-5.1); SODIUM 139 mmol/L (136-145); UREA NITROGEN 25 mg/dL (7-18); eGFR NON AFRICAN AMERICAN 79 mL/min (90-120)
[2019-02-16 21:35] LABS: CKMB 1.9 U/L (0.0-3.6); CREATINE KINASE 143 UL (21-232); MAGNESIUM - SERUM 2.3 mg/dL (1.8-2.4); TROPONIN-I 0.041 ng/mL (0.000-0.060)
[2019-02-17 00:47] VITALS: BP 107/80
== END 2019-02-16 21:48 | disposition other institution (70) ==
LOC: D.ER 19:17
PROVIDERS: Family Medicine
DX: I63.9 Cerebral infarction, unspecified (principal); G81.94 Hemiplegia, unspecified affecting left nondominant side; R47.89 Other speech disturbances